=== PATIENT | female | born 1985 | race Two or more races ===

== ENCOUNTER 2021-07-20 14:34 | Emergency (ER) | payer SELFPAY ==
[~2021-07-20] VITALS: Ht 162.6 cm; Wt 91.0 kg
--- NOTE | 2021-07-20 14:50 | ED.ADGEN ---
Past Medical History Past Medical History: No Pertinent History Past Medical History G4, P2, miscarriage 1 Past Surgical History: No Surgical History Smoking Status: Never Smoker Alcohol Use: None Drug Use: None General Adult EDM: Chief Complaint: ABDOMINAL PAIN IN HPI: HPI: Patient is a 36-year-old female who arrives ambulatory to the emergency department complaining of lower abdominal pain. Patient reports she has been dealing with this pain for the past week however her pain has gotten acutely worse since yesterday. Patient reports that she is and did have some blood when she wiped previously however she has not had any vaginal bleeding or discharge over the past 2 days. Patient does report that she is however she is unaware of how many weeks she may be. Patient states her last menstrual period was in early May. She further states she has had 3 previous pregnancies which were uneventful. She denies any nausea or vomiting. She further denies any fevers or diarrhea. Additionally she denies any back pain. She is awake, alert and nontoxic-appearing. Review of Systems: Review of Systems: Constitutional: Denies fever or chills. [] Eyes: Denies change in visual acuity. [] HENT: Denies nasal congestion or sore throat. [] Respiratory: Denies cough or shortness of breath. [] Cardiovascular: Denies chest pain or edema. [] GI: Denies abdominal pain, nausea, vomiting, bloody stools or diarrhea. [] : Reports as well as pelvic pain. Denies dysuria. [] Musculoskeletal: Denies back pain or joint pain. [] Integument: Denies rash. [] Neurologic: Denies headache, focal weakness or sensory changes. [] Endocrine: Denies polyuria or polydipsia. [] Lymphatic: Denies swollen glands. [] Psychiatric: Denies depression or anxiety. [] Allergies: Allergies: Allergies Coded Allergies Type Severity Reaction Last Updated Verified No Known Drug Allergies 12/09/13 No Physical Exam: PE: Constitutional: Well developed, well nourished, no acute distress, non-toxic appearance. [] HENT: Normocephalic, atraumatic, bilateral external ears normal, oropharynx moist, no oral exudates, nose normal. [] Eyes: PERRLA, EOMI, conjunctiva normal, no discharge. [] Neck: Normal range of motion, no tenderness, supple, no stridor. [] Cardiovascular:Heart rate regular rhythm, no murmur [] Lungs & Thorax: Bilateral breath sounds clear to auscultation [] Abdomen: Patient has lower abdominal tenderness of the right and lower left quadrants as well as overlying the bladder. Bowel sounds normal, soft, no masses, no pulsatile masses. [] Skin: Warm, dry, no erythema, no rash. [] Back: No tenderness, no CVA tenderness. [] Extremities: No tenderness, no cyanosis, no clubbing, ROM intact, no edema. [] Neurologic: Alert and oriented X 3, normal motor function, normal sensory function, no focal deficits noted. [] Psychologic: Affect normal, judgement normal, mood normal. [] Current Patient Data: Labs: Laboratory Tests Test 07/20/21 14:38 Urine Collection Type Unknown Urine Color (Auto) Light yellow Urine Turbidity Clear Urine pH (Auto) 5.5 (<5.0-8.0) Urine Specific [place] 1.023 (1.000-1.030) Urine Protein (Auto) Negative mg/dL (Negative) Urine Glucose (Auto)(UA) Negative mg/dL (Negative) Urine Ketones (Auto) Negative mg/dL (Negative) Urine Blood (Auto) Negative (Negative) Urine Nitrite Negative (Negative) Urine Bilirubin (Auto) Negative (Negative) Urine Urobilinogen (Auto) Normal mg/dL (Normal) Urine Leukocyte Esterase (Auto) Negative (Negative) Urine RBC Occ /HPF (0-2) Urine WBC 1-4 /HPF (0-4) Urine Squamous Epithelial Cells Mod /LPF Urine Bacteria 0 /HPF (0-FEW) Urine Mucus Marked /LPF Urine Test Positive (NEG) Vital Signs: Vital Signs Date Time Temp Pulse Resp B/P (MAP) Pulse Ox O2 Delivery O2 Flow Rate FiO2 07/20/21 16:35 66 16 91/59 (70) 100 07/20/21 14:59 97.8 Room Air 97.8 EKG: EKG: [] Heart Score: C/O Chest Pain: No Risk Factors: Risk Factors: DM, Current or recent (<one month) smoker, HTN, HLP, family history of CAD, obesity. Risk Scores: Score 0 - 3: 2.5% MACE over next 6 weeks - Discharge Home Score 4 - 6: 20.3% MACE over next 6 weeks - Admit for Clinical Observation Score 7 - 10: 72.7% MACE over next 6 weeks - Early Invasive Strategies Radiology/Procedures: Radiology/Procedures: [] Course & Med Decision Making: Course & Med Decision Making Pertinent Labs and Imaging studies reviewed. (See chart for details) Upon arrival the patient was taken to room 15 where she was interviewed and examined. The patient did relate to lower abdominal/pelvic pain which has been ongoing for a week however has become more intense over the past 2 days. Patien t also relates to history of however she is unaware of how far along she was in her . Urinalysis was obtained which did reveal the patient was . Ultrasonography was performed which did reveal a gestational sac. Corresponding blood work is pending at this time as the patient did have blood in her urine and as result I do believe the patient needs to be assessed for the possibility of RhoGAM administration. Furthermore a serum hCG quantitative level has been ordered and is pending to assess the staging of the relative to ultrasonography. The patient continues to rest without any acute distress. Care will be transitioned to Dr. Parnell for further evaluation and treatment. [] Newton Disclaimer: Newton Disclaimer: This electronic medical record was generated, in whole or in part, using a voice recognition dictation system. Departure Departure Impression: Primary Impression: with abdominal cramping of lower quadrant, antepartum Condition: STABLE Referrals: NON,STAFF (PCP) DRAKE BECERRA DO July 20, 2021 14:50
[2021-07-20 15:10] LABS: BACTERIA,URINE 0 /HPF (0-FEW); RBC,URINE OCC /HPF (0-2)
[2021-07-20 16:30] LABS: U PREG PATIENT POSITIVE (NEG)
--- NOTE | 2021-07-20 18:22 | RAD ---
EXAMINATION: US OB <14 WKS +TV (FIRST TRIMESTER PELVIC ULTRASOUND) CLINICAL HISTORY: Pelvic pain in . TECHNIQUE: Sonography of the pelvis was performed by transabdominal and transvaginal techniques. COMPARISON: None. FINDINGS: Uterus: - Orientation: Anteverted - Size: 9.4 x 6.0 x 5.1 cm - Myometrium: Homogeneous echotexture - Cervix: 3.4 cm in length with closed internal os. Gestation: - Intrauterine Gestational Sac: Single present with normal morphologic appearance - Mean Sac Diameter : 9 mm, corresponding to gestational age 5 weeks 5 days and estimated date of delivery 03/17/2022 - Yolk Sac: Not visualized - Embryo: Not visualized - Perigestational Hemorrhage: Mild fluid in the distal endometrial canal versus small perigestational hemorrhage. Right Ovary: - Size: 3.0 x 2.7 x 2.2 cm - 1.9 cm heterogeneously hypoechoic lesion, nonspecific but could represent a complex/complicated cys t. Normal ovarian blood flow. Left Ovary: Obscured by overlying bowel gas. Pelvic Free Fluid: Absent IMPRESSION: Small intrauterine sac like structure with no visualized pole or yolk sac, possibly too early i n to be detected. Recommend short interval follow-up ultrasound in 10-14 days. Mild fluid in the distal endometrial canal versus small perigestational hemorrhage, recommend attenti on on follow-up imaging. Electronically signed by: Rosalio Marks DO (07/20/2021 6:19 PM) [facility]
[2021-07-20 19:07] VITALS: BP 114/75
== END 2021-07-20 19:19 | disposition left against medical advice (07) ==
LOC: ER 14:34
DX: O26.891 Other specified pregnancy related conditions, first trimester (principal); R10.31 Right lower quadrant pain; R10.32 Left lower quadrant pain; Z3A.00 Weeks of gestation of pregnancy not specified
CPT/HCPCS: 36415; 76801; 76817; 81001; 81025; 84702; 86850; 86900; 86901; 87491; 87591; 99284-25